=== PATIENT | female | born 1960 | race Caucasian/White ===

== ENCOUNTER 2019-08-03 11:30 | Outpatient (CLI) | payer BC, OTHER ==
[2019-08-03 18:43] LABS: CALCIUM 10.1 mg/dL (8.5-10.3); CREATININE 1.3 mg/dL (0.4-1.0)
== END 2019-08-03 23:59 | disposition home or self-care (01) ==
LOC: LAB.R 11:30
DX: Z93.3 Colostomy status (principal)
CPT/HCPCS: 80048

== ENCOUNTER 2019-08-10 08:00 | Outpatient (CLI) | payer OTHER ==
[2019-08-10 12:14] LABS: CALCIUM 10.1 mg/dL (8.5-10.3); CREATININE 1.1 mg/dL (0.4-1.0)
[2019-08-10 12:16] LABS: BASOPHILS # (AUTO) 0.1 10^3/uL (0.0-0.1); BASOPHILS % (AUTO) 1.2 %; EOSINOPHILS # (AUTO) 0.5 10^3/uL (0.0-0.7); HGB - HEMOGLOBIN 14.1 g/dL (12.0-16.0); MEAN CORPUSCULAR HEMOGLOBIN 30.1 pg (27.0-31.0); MEAN CORPUSCULAR HGB CONC 32.6 g/dL (32.0-36.0); MEAN CORPUSCULAR VOLUME 92.3 fL (81.0-99.0); MEAN PLATELET VOLUME 11.5 fL (7.9-10.8); MONOCYTES % (AUTO) 8.3 %; NEUTROPHILS % (AUTO) 69.2 %; PLT - PLATELET COUNT 167 10^3/uL (130-450); RED BLOOD COUNT 4.68 10^6/uL (4.20-5.40); WHITE BLOOD COUNT 11.6 x10^3/uL (4.8-10.8)
== END 2019-08-10 23:59 | disposition home or self-care (01) ==
LOC: LAB.R 08:00
DX: R79.89 Other specified abnormal findings of blood chemistry (principal)
CPT/HCPCS: 80048; 85025

== ENCOUNTER 2019-08-17 10:35 | Outpatient (CLI) | payer OTHER ==
[2019-08-17 18:06] LABS: CALCIUM 10.2 mg/dL (8.5-10.3); CREATININE 1.1 mg/dL (0.4-1.0)
== END 2019-08-17 23:59 | disposition home or self-care (01) ==
LOC: LAB.R 10:35
DX: K74.60 Unspecified cirrhosis of liver (principal)
CPT/HCPCS: 80048